=== PATIENT | female | born 1960 | race Caucasian/White ===

== ENCOUNTER 2024-04-17 04:36 | Day surgery (SDC) | payer OTHER ==
[2024-04-10 10:40] VITALS: BMI 24.1
[2024-04-17 11:20] VITALS: TEMP 97.5
[2024-04-17 13:19] VITALS: BP 118/55; PULSE 75; RESP 14
== END 2024-04-17 12:00 | disposition home or self-care (01) ==
LOC: JASU-ENDO 04:36
PROVIDERS: ATTEND Internal Medicine Gastroenterology
PROC: 0DJD8ZZ Inspection of Lower Intestinal Tract, Via Natural or Artificial Opening Endoscopic (ICD-10-PCS; principal; 2024-04-17 10:45)
DX: Z12.11 Encounter for screening for malignant neoplasm of colon (principal); K57.30 Diverticulosis of large intestine without perforation or abscess without bleeding; K64.8 Other hemorrhoids